=== PATIENT | female | born 1955 | race Caucasian/White ===

== ENCOUNTER → 2016-06-23 | Outpatient (CLI) | payer BC ==
[~2016-06-23] MED LIST: ALBUAER2 INH; BUDE180I INH; CIPR-255 PO; ELCCR115 TOP; FELO10TA2 PO; FEXO1TAB46 PO; FLUT0.15 NAE; INDA1TAB3 PO; PANT40TA PO
== END | disposition home or self-care (01) ==
LOC: C.LABSPEC 17:40
PROVIDERS: ATTEND Podiatrist Foot & Ankle Surgery
DX: L03.116 Cellulitis of left lower limb (principal)

== ENCOUNTER → 2016-09-22 | Outpatient (CLI) | payer BC ==
[2016-09-22 10:33] LABS: BASO % 0.5 %; BASO ABS # 0.03 K/uL (0-0.2); COMPLETE YES; EOS % 2.3 %; HEMATOCRIT 38.1 % (37-47); IG% 0.2 %; LYMPH % 14.7 %; LYMPH ABS # 0.94 K/uL (1.2-3.4); MEAN CELL VOLUME 82.5 fL (80-100); MEAN CORPUSCULAR HEMOGLOBIN 28.4 pg (25-34); MEAN CORPUSCULAR HGB CONC 34.4 g/dl (32-36); MEAN PLATELET VOLUME 9.5 fL (7.4-10.4); NEUT % 72.3 %; PLATELET COUNT 328 K/uL (130-400); RED BLOOD COUNT 4.62 M/uL (4.2-5.4); WHITE BLOOD COUNT 6.39 K/uL (4.8-10.8)
[2016-09-22 10:44] LABS: BLOOD UREA NITROGEN 14 mg/dl (7-18); BUN/CREATININE RATIO 24.6 (10-20); CALCIUM 9.3 mg/dl (8.5-10.1); CARBON DIOXIDE 31 mmol/L (21-32); CHLORIDE 96 mmol/L (98-107); CHOLESTEROL 235 mg/dl (0-200); CREATININE 0.56 mg/dl (0.60-1.20); GLUCOSE 91 mg/dl (70-99); POTASSIUM 3.4 mmol/L (3.5-5.1); SODIUM 135 mmol/L (136-145); TRIGLYCERIDES 83 mg/dl (0-150); VERY LOW DENSITY LIPOPROT CALC 17 mg/dl
[2016-09-22 10:53] LABS: ESTIMATED AVERAGE GLUCOSE 120 mg/dl; HA1C FLAG Normal (Normal)
[2016-09-22 10:56] LABS: CHOLESTEROL/HDL RATIO 3.2; HDL CHOLESTEROL 73 mg/dl; LDL CHOLESTEROL CALCULATED 145 mg/dl
== END | disposition home or self-care (01) ==
LOC: C.LABBC 07:43
PROVIDERS: ATTEND Internal Medicine
DX: E78.5 Hyperlipidemia, unspecified (principal)

== ENCOUNTER → 2017-04-13 | Outpatient (CLI) | payer BC ==
[2017-04-13 11:03] LABS: BASO % 1.1 %; BASO ABS # 0.05 K/uL (0-0.2); COMPLETE YES; EOS % 3.1 %; HEMATOCRIT 38.2 % (37-47); LYMPH % 23.7 %; LYMPH ABS # 1.08 K/uL (1.2-3.4); MEAN CORPUSCULAR HEMOGLOBIN 29.1 pg (25-34); MEAN CORPUSCULAR HGB CONC 35.1 g/dl (32-36); MEAN PLATELET VOLUME 10.4 fL (7.4-10.4); MONO % 9.4 %; NEUT % 62.7 %; PLATELET COUNT 262 K/uL (130-400); WHITE BLOOD COUNT 4.56 K/uL (4.8-10.8)
[2017-04-13 11:25] LABS: ALT/SGPT 28 U/L (12-78); AST/SGOT 14 U/L (15-37); BLOOD UREA NITROGEN 13 mg/dl (7-18); BUN/CREATININE RATIO 24.2 (10-20); CALCIUM 9.1 mg/dl (8.5-10.1); CARBON DIOXIDE 31 mmol/L (21-32); CHLORIDE 95 mmol/L (98-107); CHOLESTEROL 242 mg/dl (0-200); CREATININE 0.54 mg/dl (0.60-1.20); GLUCOSE 91 mg/dl (70-99); POTASSIUM 3.4 mmol/L (3.5-5.1); SODIUM 132 mmol/L (136-145); TRIGLYCERIDES 97 mg/dl (0-150); VERY LOW DENSITY LIPOPROT CALC 19 mg/dl
[2017-04-13 11:40] LABS: URINE APPEARANCE CLEAR (CLEAR); URINE BILIRUBIN NEG (NEG); URINE COLOR YELLOW; URINE EPITHELIAL CELL AUTO 0-5 /lpf (0-5); URINE NITRITE NEG (NEG); URINE SPECIFIC GRAVITY 1.018 (1.000-1.030); UROBILINOGEN NEG (NEG)
[2017-04-13 11:40] LABS: CHOLESTEROL/HDL RATIO 3.3; HDL CHOLESTEROL 74 mg/dl; LDL CHOLESTEROL CALCULATED 149 mg/dl
[2017-04-13 11:42] LABS: MANUAL MICROSCOPIC REQUIRED? NO; REVIEW REQ? NO
[2017-04-13 13:30] LABS: ESTIMATED AVERAGE GLUCOSE 114 mg/dl; HA1C FLAG Normal (Normal)
== END | disposition home or self-care (01) ==
LOC: C.LABBC 07:27
PROVIDERS: ATTEND Internal Medicine
DX: E78.5 Hyperlipidemia, unspecified (principal)

== ENCOUNTER → 2017-07-16 | Outpatient (CLI) | payer OTHER ==
[~2017-07-16] MED LIST changes: +ACET-1256 PO; +ASCO1CAP3 PO; +CALC-393 PO; +MOME0.1O3 EX; +VNTHFA/IN INH
[2017-07-16 11:17] LABS: HEMOGLOBIN A1C 5.6 % (4.5-5.6)
== END | disposition home or self-care (01) ==
LOC: C.LABBC 07:29
PROVIDERS: ATTEND Podiatrist Foot & Ankle Surgery
DX: Z01.812 Encounter for preprocedural laboratory examination (principal)

== ENCOUNTER 2017-07-27 05:16 | Day surgery (SDC) | payer BC, OTHER ==
[2017-07-16 14:48] VITALS: Ht 157.5 cm; Wt 54.5 kg
--- NOTE | 2017-07-26 11:04 | HISTORY & PHYSICAL EXAMINATION ---
DATE OF ADMISSION: 07/27/2017 HISTORY OF PRESENT ILLNESS: This is a 62-year-old female who presents today for preoperative history and physical requesting lesion surgery. Lesions are about the same and unchanged over time, existed for several years since about 2009. She notes pain while ambulating. Past treatment has included biopsy, bleomycin, cryotherapy debridement, and laser. She notes that these have helped; however, did not resolve the condition. She has got the most improvement from partial excision and destruction of lesions previously, just requesting a similar type of treatment at today's visit. PAST SURGICAL HISTORY: Gallbladder removal in 2012, ovarian surgery in 2009, gallbladder removal in 2002. PAST MEDICAL HISTORY: Gallbladder disease, diabetes mellitus, and gout. MEDICATIONS: Albuterol, Pulmicort, Nasacort, [place], Plendil and indapamide. ALLERGIES: PENICILLINS, BIAXIN, IODINE SULFATE, DOXYCYCLINE, SULFA, ERYTHROMYCIN. FAMILY HISTORY: Unremarkable. SOCIAL HISTORY: The patient denies smoking, alcohol use, illicit drug use, and STDs. REVIEW OF SYSTEMS: Unremarkable except for the chief complaint. PHYSICAL EXAMINATION: VITAL SIGNS: Height 5 feet 2 inches, weight 120 pounds. Body mass index 22. CONSTITUTIONAL: The patient appears well developed and well nourished with good attention to body grooming and habitus. HEAD AND FACE: Head is normocephalic and atraumatic without any gross head, face, or neck masses. EYES: Conjunctival and pupillary accommodation is normal. EARS, NOSE, MOUTH, AND THROAT: Unremarkable. NECK: Neck is supple. Trachea is midline without any adenopathy or crepitance palpable. CARDIOVASCULAR: Normal S1 and S2 without murmur, gallops, rubs, or clicks noted. Cardiovascular exam is normal. RESPIRATORY: Chest is symmetric. No scars are visible. No port or pacemaker. LUNGS: Clear to auscultation bilaterally and equal. GASTROINTESTINAL: Abdominal organs, bladder, and kidneys show no abnormalities, masses, tenderness, or rigidity. LYMPHATIC: No popliteal, inguinal, or supraclavicular lymphadenopathy noted. LOWER EXTREMITY: Pulses of lower extremity palpable. DERMATOLOGIC: Cutaneous lesions are observed. Distal plantar aspect of the left third toe demonstrates lesions that show porokeratosis, interruption of skin tension lines right fifth, left third, right third, left fourth, left second and left fifth. All show lesions, show interruption of skin tension lines, porokeratosis and pain on lateral compression. NEUROLOGICAL: Touch, pin, vibratory, and proprioception sensations are normal. Epicritic sensation per Juarez-Mamadou monofilament 5.07 intact. MUSCULOSKELETAL: PIPJ contracture noted 2 through 5 bilaterally. IMPRESSION: 1. Painful lesions, vascular bilateral lower extremities. 2. 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 3. Hammertoes 2 through 5. 4. Non-insulin dependent diabetes mellitus, diet controlled. 5. Difficulty walking. 6. Pain in the lower extremity. 7. Status post Lamisil treatment finished in September 2011. 8. History of allergic contact dermatitis and atopic eczema, resolved with triamcinolone cream. 9. Status post laser vaporization bilateral feet, partial lesion excision showing marked hyperkeratosis and hypergranulosis on 08/02/2013. 10. Status post partial lesion excision showing a verruca on the left foot and bleomycin injection on 05/28/2016. PLAN: 1. I informed the patient of the possible etiologies and possible treatment options including debridement, application of acid. 2. Surgical excision. 3. Cryotherapy. 4. CO2 laser vaporization. 5. Bleomycin due to improvement with surgical intervention before she is requesting at this time. She is aware that no treatment is 100% effective and success rate for all treatments are relatively similar. The patient elects to proceed with destruction of lesions and partial lesion excision. This will be performed over 28 areas of bilateral feet under local with IV sedation as an outpatient at the hospital. The procedure, risks and complications were fully reviewed with the patient and foot diagram and illustration reviewed in all their entirety. All the patient's questions were answered. Complications were discussed in detail with the patient including pain, infection, swelling that may or may not be excessive, pins and needles feeling, numbness, metatarsalgia, excessive bleeding, delay or nonhealing of skin, enlarged scar, failure of the procedure, reoccurrence or worsening condition, which may or not require further surgery, adverse reaction to anesthesia, allergic reaction to suture or other implant material, loss of toe, foot, or leg; transfer lesion or callus, peripheral neurovascular complications such as phlebitis, damage to nerves or vascular structures, recurrent pain, chronic nerve pain, damage, general complications. The patient will be required to be in a surgery shoe for a minimum of 3-7 days and not return to dress shoe for 3 weeks depending on postop edema and need for accommodative padding. The patient is aware this is an elective procedure and I recommend a second opinion. The patient stated she understood. Consent form was signed with a copy of the foot diagram issued to the patient. Verbal and written postop instructions were given. The patient will return to the office for postop check or sooner if medically necessary. Instructed to keep dressing clean, dry and intact until seen at the office. At the time of the preoperative appointment, prescriptions for Silvadene and Tylenol were dispensed with Keflex. JOSÉ LUIS
[~2017-07-27] VITALS: Ht 157.5 cm; Wt 54.5 kg
[~2017-07-27 05:16] MED LIST changes: -ALBUAER2 INH; -CIPR-255 PO; -ELCCR115 TOP
[2017-07-27 05:56] VITALS: BP 144/80; PULSE 68; TEMP 36.6; O2SAT 95
[2017-07-27] MEDS ORDERED: LACTATED RINGER'S 1000ML 1,000 ML IV SCH (06:00)
[2017-07-27] MEDS ORDERED: ROPIVACAINE 0.5% 5 MG/ML 30 ML VIAL ONE (06:24)
[2017-07-27] MEDS ORDERED: PROPOFOL IV EMULSION 10 MG/ML 20 ML VIAL IV ONE (06:35)
[2017-07-27] MEDS ORDERED: LIDOCAINE HCL 2% 2 ML VIAL (20MG/ML) ONE (06:35)
[2017-07-27] MEDS ORDERED: DEXAMETHASONE SOD INJ 4 MG/ML VIAL ONE (06:35)
[2017-07-27] MEDS ORDERED: ONDANSETRON INJ 2 MG/ML 2 ML VIAL ONE ×2 (06:35→07:39)
[2017-07-27] MEDS ORDERED: MIDAZOLAM HCL 1 MG/ML 2ML VIAL ONE (06:36)
[2017-07-27] MEDS ORDERED: FENTANYL CITRATE INJ 50 MCG/1 ML 2 ML VIAL ONE (06:36)
[2017-07-27] MEDS ORDERED: SODIUM CHLORIDE 0.9% 1000ML 1,000 ML IV SCH (06:53)
--- NOTE | 2017-07-27 06:53 | History & Physical Bridge Note ---
H&P Re-Evaluation Bridge Note: I have examined the patient, reviewed the History & Physical and in the interval since the performance of the History & Physical I have noted the following changes of clinical significance: No changes noted
[2017-07-27] MEDS ORDERED: BUPIVACAINE 0.5 % 5 MG/1 ML MPF 30ML VIAL ONE (07:01)
[2017-07-27] MEDS ORDERED: SILVER NITR/POTASSIUM NITRATE APPLICATOR ONE (07:10)
[2017-07-27] MEDS ORDERED: CLINDAMYCIN 600 MG/54 ML D5W IV ONE (07:14)
[2017-07-27] MEDS ORDERED: SCOPOLAMINE 1.5 MG TDSY TD ONE (07:15)
[2017-07-27] MEDS ORDERED: GELATIN SPONGE SZ 100 ONE (07:24)
--- NOTE | 2017-07-27 07:28 | Discharge Instructions ---
Discharge Instructions Date of Service Jul 27, 2017. Admission Reason for Admission: Benign Neoplasm of Skin Discharge Discharge Diagnosis / Problem: same as diagnosis Discharge Goals Goal(s): Decrease discomfort, Therapeutic intervention Activity Recommendations Activity Limitations: as noted below Medications: * Resume previous medications unless instructed by your surgeon. * Take your medications as prescribed. Call our office ([phone]) at any time, if you experience severe pain that does not subside shortly after taking your pain medication. Activity: * You may walk on your operated foot/ankle using the surgical shoe or cast/splint. Do not put any weight on your operated foot/ankle without wearing the surgical shoe or cast sandal.. Special Care: * Keep your bandage clean and dry. Do not remove your bandage unless otherwise instructed. A small amount of blood may appear on the bandage over the surgical site. Call our office ([phone]) if you bandage becomes blood-soaked or wet. * Elevate your operated foot/ankle on pillows, above the level of your heart, as often as possible during the first 2-3 days following surgery. Keep your knee flexed slightly with a pillow under your knee when you elevate your foot/ankle. * Apply a ice bag to your foot/ankle over the operative site for 20-30 minutes out of each hour while you are awake. Do not allow the ice bag to directly contact bare skin. * Avoid bumping or handling any pins visible in your toes. If any pin feels or appears loose, call the office ([phone]). * Take your oral temperature in the morning and at bedtime. Call our office ([phone]) if your temperature rises above 101 degrees Fahrenheit. Call your surgeon's office at ([phone]) for any problems or concerns such as excessive bleeding and/or pain unrelieved by your prescribed pain medications. If you have any questions, please do not hesitate to ask them. Avoid all tobacco products. If you need help to stop smoking, call [place]'s FREE QUITLINE at . This is a free call. Follow-up: Follow-up with Dr. Mckeon . Current Hospital Diet Patient's current hospital diet: Discharge Diet Recommended Diet: Diabetes Type 2 Diet Pending Studies Studies pending at discharge: no Laboratory Results Hemoglobin A1c Test 07/16/17 07:31 Range/Units Estimated Average Glucose 114 mg/dl Hemoglobin A1c 5.6 4.5-5.6 % Medical Emergencies . Who to Call and When: Medical Emergencies: If at any time you feel your situation is an emergency, please call 911 immediately. . Non-Emergent Contact Non-Emergency issues call your: Primary Care Provider . "Provider Documentation" section prepared by Keyona Uribe. . VTE Core Measure Inpt VTE Proph given/why not?: Treatment not indicated
--- NOTE | 2017-07-27 08:17 | [facility] Operative Report ---
Operative Report Operative Date Jul 27, 2017. 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 Surgeon Dr. Mckeon Ethnology Professor Surgeon(s) none Estimated Blood Loss minimal Specimens A. Five Skin Excisions Right Foot B. Five Skin Excisions Left Foot Anesthesia Type None I attest to the content of the Intraoperative Record and any orders documented therein. Any exceptions are noted below.
--- NOTE | 2017-07-27 08:21 | OPERATIVE REPORT ---
DATE OF OPERATION: 07/27/2017 SURGEON: Keyona Mckeon DPM. PREOPERATIVE DIAGNOSES: 1. Painful vascular lesions, bilateral feet. 2. Metatarsalgia secondary to lesions. POSTOPERATIVE DIAGNOSES: Same. PROCEDURE: 1. Excision of lesions to the depth of 1.2 cm x10, 5 from the right, 5 from the left. 2. Destruction of cutaneous lesions total of 11 square cm bilateral lower extremities. ANESTHESIA: General with preoperative block given 0.5% Marcaine plain, total of 30 mL. HEMOSTASIS: None. ESTIMATED BLOOD LOSS: Minimal. MATERIALS: Gelfoam. HISTOPATHOLOGY: Lesion sent. COMPLICATIONS: None. The patient tolerated the procedure and anesthesia well without complications, transported to recovery room with vital signs stable and neurovascular status intact. DESCRIPTION OF THE PROCEDURE: The patient was brought to the OR and placed on the OR table in supine position. Upon completion of general anesthesia by the anesthesia department, a local field block was performed with 30 mL 0.5% Marcaine plain. The extremity was scrubbed, prepped and draped in the usual aseptic fashion. Attention was directed to the plantar aspect of the right foot and left foot where a total of 5 areas were excised from each extremity. This was excised to the depth of 1.2 cm, approximately 10 square cm plantar aspect of bilateral lower extremities. The area was cauterized over cutaneous vascular lesions. All bleeding was controlled. Gelfoam was used to pack the excision sites. Dry sterile compressive dressing consisting of Silvadene, ABDs, Kerlix and an Kenneth was applied. The patient tolerated the procedure and anesthesia well without complications and transported to the recovery room with vital signs stable and neurovascular status intact. I attest to the content of the Intraoperative Record and any orders documented therein. Any exception s are noted below.
[2017-07-27] MEDS ORDERED: HYDROmorphone INJ 1 MG/ML SYR IV PRN (08:45)
[2017-07-27] MEDS ORDERED: FENTANYL CITRATE INJ 50 MCG/1 ML 2 ML VIAL IV PRN (08:45)
[2017-07-27] MEDS ORDERED: ONDANSETRON INJ 2 MG/ML 2 ML VIAL IV PRN (08:45)
[2017-07-27] MEDS ORDERED: ATROPINE SULFATE 0.1 MG/ML 5ML SYR IV PRN (08:45)
[2017-07-27] MEDS ORDERED: EpHEDrine SULFATE INJ 50 MG/ML AMP IV PRN (08:45)
[2017-07-27 09:10] VITALS: BP 143/75; PULSE 64; TEMP 36.5; O2SAT 97
[2017-07-27 09:40] VITALS: BP 152/72; PULSE 69; TEMP 36.5; O2SAT 99
--- NOTE | 2017-07-27 10:28 | Anesthesiology Progress Note ---
Anesthesia Post Op Note Date & Time Jul 27, 2017 at 10:28 Vital Signs Pain Intensity: 0 Vital Signs Past 12 Hours Date Time Temp Pulse Resp B/P (MAP) Pulse Ox O2 Delivery O2 Flow Rate FiO2 07/27/17 09:40 36.5 69 16 152/72 99 Room Air 07/27/17 09:10 36.5 64 16 143/75 97 Room Air 07/27/17 09:00 36.2 61 15 146/79 97 Room Air 07/27/17 08:50 63 15 135/78 96 Room Air 07/27/17 08:40 66 13 134/87 100 Room Air 07/27/17 08:30 61 16 149/85 100 Mask 4 07/27/17 08:20 36.2 65 18 145/86 100 Mask 10 07/27/17 05:56 36.6 68 18 144/80 (101) 95 Room Air Notes Mental Status: alert / awake / arousable, participated in evaluation Pt Amnestic to Procedure: Yes Nausea / Vomiting: adequately controlled Pain: adequately controlled Airway Patency, RR, SpO2: stable & adequate BP & HR: stable & adequate Hydration State: stable & adequate Anesthetic Complications: no major complications apparent
== END 2017-07-27 09:45 | disposition home or self-care (01) ==
LOC: C.ACU 05:16
PROVIDERS: ATTEND Podiatrist Foot & Ankle Surgery
DX: L82.1 Other seborrheic keratosis (principal); J45.909 Unspecified asthma, uncomplicated; I10 Essential (primary) hypertension; E11.9 Type 2 diabetes mellitus without complications; M10.9 Gout, unspecified; Z90.89 Acquired absence of other organs; Z88.0 Allergy status to penicillin; Z88.1 Allergy status to other antibiotic agents; Z88.2 Allergy status to sulfonamides; Z79.899 Other long term (current) drug therapy

== ENCOUNTER → 2017-10-11 | Outpatient (CLI) | payer OTHER ==
[2017-10-11 11:19] LABS: BASO % 1.3 %; BASO ABS # 0.06 K/uL (0-0.2); EOS % 3.1 %; EOS ABS # 0.14 K/uL (0-0.5); HEMOGLOBIN 14.3 g/dL (12.0-16.0); IG# 0.01 K/uL (0.00-0.02); LYMPH % 28.1 %; LYMPH ABS # 1.26 K/uL (1.2-3.4); MEAN CELL VOLUME 83.7 fL (80-100); MEAN CORPUSCULAR HEMOGLOBIN 28.5 pg (25-34); MONO ABS # 0.45 K/uL (0.11-0.59); NEUT % 57.3 %; NEUT ABS # 2.57 K/uL (1.4-6.5); PLATELET COUNT 266 K/uL (130-400); RED CELL DISTRIBUTION WIDTH CV 12.9 % (11.5-14.5); WHITE BLOOD COUNT 4.49 K/uL (4.8-10.8)
[2017-10-11 11:36] LABS: HEMOGLOBIN A1C 5.7 % (4.5-5.6)
[2017-10-11 11:41] LABS: BLOOD UREA NITROGEN 19 mg/dl (7-18); CALCIUM 9.4 mg/dl (8.5-10.1); CARBON DIOXIDE 31 mmol/L (21-32); CREATININE 0.64 mg/dl (0.60-1.20); GLUCOSE 87 mg/dl (70-99); POTASSIUM 3.2 mmol/L (3.5-5.1); SODIUM 135 mmol/L (136-145)
[2017-10-11 11:45] LABS: CHOLESTEROL 245 mg/dl (0-200); LDL CHOLESTEROL CALCULATED 160 mg/dl
== END | disposition home or self-care (01) ==
LOC: C.LABBC 07:29
PROVIDERS: ATTEND Physician Assistant
DX: E78.5 Hyperlipidemia, unspecified (principal); R73.9 Hyperglycemia, unspecified

== ENCOUNTER → 2018-01-17 | Outpatient (CLI) | payer OTHER | END | disposition home or self-care (01) | LOC: C.PAPS 13:45 | PROVIDERS: ATTEND Obstetrics & Gynecology | DX: Z12.4 Encounter for screening for malignant neoplasm of cervix (principal) ==